=== PATIENT | male | born 1995 | race Caucasian/White ===

== ENCOUNTER 2018-04-11 15:30 | Emergency (ER) | payer OTHER ==
[2018-04-11 15:52] VITALS: O2SAT 98
--- NOTE | 2018-04-11 15:53 | ERPHSYRPT ---
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 This occurred about 1-1/2 hours to 2 hours ago. The patient stayed in the excavator the entire time until the power to the lines was shut off. At no time did he feel like he was being shocked. He exited the excavator after the power had been turned off to the lines. His work wanted him to be thoroughly examined. His past medical history is unremarkable. Timing/Duration: today, hour(s) (2) Modifying Factors: Improves With: nothing Associated Symptoms: denies symptoms - Review of Systems Constitutional: No Fever, No Chills Eyes: No Symptoms Ears, Nose, & Throat: No Symptoms Respiratory: No Symptoms, No Cough, No Dyspnea Cardiac: No Symptoms, No Chest Pain, No Edema, No Syncope Abdominal/Gastrointestinal: No Symptoms, No Abdominal Pain, No Nausea, No Vomiting, No Diarrhea Genitourinary Symptoms: No Symptoms, No Dysuria Musculoskeletal: No Symptoms, No Back Pain, No Neck Pain Skin: No Rash Neurological: No Dizziness, No Focal Weakness, No Sensory Changes Psychological: No Symptoms Endocrine: No Symptoms Hematologic/Lymphatic: No Symptoms Immunological/Allergic: No Symptoms All Other Systems: Reviewed and Negative - Nursing Vital Signs Nursing Vital Signs: Initial Vital Signs Temperature 97.8 F 04/11/18 15:39 Pulse Rate 72 04/11/18 15:39 Respiratory Rate 16 04/11/18 15:39 Blood Pressure 169/94 04/11/18 15:39 O2 Sat by Pulse Oximetry 98 04/11/18 15:39 Pain Scale Pain Intensity 10 - Physical Exam General Appearance: no apparent distress, alert Eye Exam: PERRL/EOMI, eyes nml inspection Ears, Nose, Throat Exam: normal ENT inspection, TMs normal, pharynx normal, moist mucous membranes Neck Exam: normal inspection, non-tender, supple, full range of motion Respiratory Exam: normal breath sounds, lungs clear, No respiratory distress Cardiovascular Exam: regular rate/rhythm, normal heart sounds, normal peripheral pulses Gastrointestinal/Abdomen Exam: soft, normal bowel sounds, No tenderness, No mass Back Exam: normal inspection, normal range of motion, No CVA tenderness, No vertebral tenderness Extremity Exam: normal inspection, normal range of motion, pelvis stable Neurologic Exam: alert, oriented x 3, cooperative, normal mood/affect, nml cerebellar function, nml station & gait, sensation nml, No motor deficits Skin Exam: normal color, warm, dry, No rash Lymphatic Exam: No adenopathy SpO2 Interpretation: normal - Course EKG Interpreted by Me: RATE, Sinus Rhythm, NORMAL AXIS, NORMAL INTERVALS, NORMAL QRS, NORMAL ST-T - Radiology Exams Chest X-ray Interpretation: Reviewed by me, Teleradiologist Report (per Dr Borja), Negative Ordered Tests: Active Orders 24 hr Category Date Time Status District Agent STAT Care 04/11/18 16:00 Active EKG-ER Only STAT Care 04/11/18 15:59 Active CHEST 2 VIEWS (PA AND LAT) Stat Exams 04/11/18 16:00 Completed CBC W DIFF Stat Lab 04/11/18 16:15 Completed CK-Creatinine Phosphokinase Stat Lab 04/11/18 16:15 Completed CMP Stat Lab 04/11/18 16:15 Completed ETHYL ALCOHOL Stat Lab 04/11/18 16:15 Completed TROPONIN Q3H Lab 04/11/18 16:15 Completed TROPONIN Q3H Lab 04/11/18 19:00 Ordered TROPONIN Q3H Lab 04/11/18 22:00 Ordered TROPONIN Q3H Lab 04/12/18 01:00 Ordered TROPONIN Q3H Lab 04/12/18 04:00 Ordered UA W/RFX UR CULTURE Stat Lab 04/11/18 15:59 Uncollected Urine Triage Profile Stat Lab 04/11/18 15:59 Uncollected Lab/Rad Data: Laboratory Result Diagrams 04/11/18 16:15 04/11/18 16:15 Laboratory Results 04/11/18 04/11/18 04/11/18 Range/Units 17:09 17:09 16:15 WBC (4.0-10.5) K/mm3 RBC (4.1-5.6) M/mm3 Hgb (12.5-18.0) gm/dl Hct (42-50) % MCV (78-100) fl MCH (26-32) pg MCHC (32-36) g/dl RDW (11.5-14.0) % Plt Count (150-450) K/mm3 MPV (6-9.5) fl Gran % (36.0-66.0) % Eos # (Auto) (0-0.5) Absolute Lymphs (auto) (1.0-4.6) Absolute Monos (auto) (0.0-1.3) Lymphocytes % (24.0-44.0) % Monocytes % (0.0-12.0) % Eosinophils % (0.00-5.0) % Basophils % (0.0-0.4) % Absolute Granulocytes (1.4-6.9) Basophils # (0-0.4) Sodium (137-145) mmol/L Potassium (3.5-5.1) mmol/L Chloride (98-107) mmol/L Carbon Dioxide (22-30) mmol/L Anion Gap (5-15) MEQ/L BUN (9-20) mg/dL Creatinine (0.66-1.25) mg/dL Estimated GFR ML/MIN Glucose (74-106) mg/dL Calcium (8.4-10.2) mg/dL Total Bilirubin (0.2-1.3) mg/dL AST (17-59) U/L ALT (0-50) U/L Alkaline Phosphatase (38-126) U/L Creatine Kinase (55-170) U/L Troponin I < 0.012 (0.000-0.034) ng/mL Serum Total Protein (6.3-8.2) g/dL Albumin (3.5-5.0) g/dL Urine Color STRAW (YELLOW) Urine Appearance CLEAR (CLEAR) Urine pH 7.0 (5-6) Ur Specific [place] 1.009 (1.005-1.025) Urine Protein NEGATIVE (Negative) Urine Ketones NEGATIVE (NEGATIVE) Urine Blood NEGATIVE (0-5) Rex/ul Urine Nitrite NEGATIVE (NEGATIVE) Urine Bilirubin NEGATIVE (NEGATIVE) Urine Urobilinogen NEGATIVE (0-1) mg/dL Ur Leukocyte Esterase NEGATIVE (NEGATIVE) Urine WBC (Auto) NONE (0-5) /HPF Urine RBC (Auto) NONE (0-2) /HPF U Hyaline Cast (Auto) 0-2 (0-2) /LPF U Epithel Cells (Auto) NONE (FEW) /HPF Urine Bacteria (Auto) NONE (NEGATIVE) /HPF Urine Mucus (Auto) SLIGHT (NEGATIVE) /HPF Urine Culture Reflexed NO (NO) Urine Glucose NEGATIVE (NEGATIVE) mg/dL Urine Opiates Level NEGATIVE (NEGATIVE) Ur Methadone NEGATIVE (NEGATIVE) Urine Barbiturates NEGATIVE (NEGATIVE) Ur Phencyclidine (PCP) NEGATIVE (NEGATIVE) Urine Amphetamine NEGATIVE (NEGATIVE) U Benzodiazepine Level NEGATIVE (NEGATIVE) Urine Cocaine NEGATIVE (NEGATIVE) Urine Marijuana (THC) NEGATIVE (NEGATIVE) Ethyl Alcohol (0-10) mg/dL 04/11/18 04/11/18 Range/Units 16:15 16:15 WBC 8.5 (4.0-10.5) K/mm3 RBC 5.37 (4.1-5.6) M/mm3 Hgb 16.1 (12.5-18.0) gm/dl Hct 46.5 (42-50) % MCV 86.6 (78-100) fl MCH 30.0 (26-32) pg MCHC 34.6 (32-36) g/dl RDW 12.2 (11.5-14.0) % Plt Count 276 (150-450) K/mm3 MPV 9.5 (6-9.5) fl Gran % 56.1 (36.0-66.0) % Eos # (Auto) 0.06 (0-0.5) Absolute Lymphs (auto) 2.99 (1.0-4.6) Absolute Monos (auto) 0.65 (0.0-1.3) Lymphocytes % 35.2 (24.0-44.0) % Monocytes % 7.6 (0.0-12.0) % Eosinophils % 0.7 (0.00-5.0) % Basophils % 0.4 (0.0-0.4) % Absolute Granulocytes 4.77 (1.4-6.9) Basophils # 0.03 (0-0.4) Sodium 143 (137-145) mmol/L Potassium 4.3 (3.5-5.1) mmol/L Chloride 101 (98-107) mmol/L Carbon Dioxide 31 H (22-30) mmol/L Anion Gap 15.0 (5-15) MEQ/L BUN 14 (9-20) mg/dL Creatinine 1.23 (0.66-1.25) mg/dL Estimated GFR > 60.0 ML/MIN Glucose 106 (74-106) mg/dL Calcium 9.9 (8.4-10.2) mg/dL Total Bilirubin 0.60 (0.2-1.3) mg/dL AST 45 (17-59) U/L ALT 70 H (0-50) U/L Alkaline Phosphatase 70 (38-126) U/L Creatine Kinase 112 (55-170) U/L Troponin I (0.000-0.034) ng/mL Serum Total Protein 8.2 (6.3-8.2) g/dL Albumin 5.1 H (3.5-5.0) g/dL Urine Color (YELLOW) Urine Appearance (CLEAR) Urine pH (5-6) Ur Specific [place] (1.005-1.025) Urine Protein (Negative) Urine Ketones (NEGATIVE) Urine Blood (0-5) Rex/ul Urine Nitrite (NEGATIVE) Urine Bilirubin (NEGATIVE) Urine Urobilinogen (0-1) mg/dL Ur Leukocyte Esterase (NEGATIVE) Urine WBC (Auto) (0-5) /HPF Urine RBC (Auto) (0-2) /HPF U Hyaline Cast (Auto) (0-2) /LPF U Epithel Cells (Auto) (FEW) /HPF Urine Bacteria (Auto) (NEGATIVE) /HPF Urine Mucus (Auto) (NEGATIVE) /HPF Urine Culture Reflexed (NO) Urine Glucose (NEGATIVE) mg/dL Urine Opiates Level (NEGATIVE) Ur Methadone (NEGATIVE) Urine Barbiturates (NEGATIVE) Ur Phencyclidine (PCP) (NEGATIVE) Urine Amphetamine (NEGATIVE) U Benzodiazepine Level (NEGATIVE) Urine Cocaine (NEGATIVE) Urine Marijuana (THC) (NEGATIVE) Ethyl Alcohol < 10 (0-10) mg/dL - Progress Progress: unchanged Counseled pt/family regarding: lab results, diagnosis, rad results - Departure Time of Disposition: 17:51 Departure Disposition: Home Clinical Impression: Normal exam Condition: Stable Critical Care Time: No Additional Instructions: Your physical exam, chest x-ray, EKG, and all laboratory results were negative. Your urine and urine drug screen were negative as well. Follow-up as needed.
[2018-04-11 16:20] LABS: BASOPHIL % 0.4 % (0.0-0.4); Basophil (Absolute #) 0.03 (0-0.4); Eosinophil % 0.7 % (0.00-5.0); Eosinophil (Absolute #) 0.06 (0-0.5); Granulocytes % 56.1 % (36.0-66.0); Hematocrit 46.5 % (42-50); Hemoglobin 16.1 gm/dl (12.5-18.0); Lymphocyte (Absolute #) 2.99 (1.0-4.6); Lymphocytes % 35.2 % (24.0-44.0); Mean Cell Volume 86.6 fl (78-100); Mean Corpuscular Hgb Concent. 34.6 g/dl (32-36); Mean Platelet Volume 9.5 fl (6-9.5); Monocyte (Absolute #) 0.65 (0.0-1.3); Monocytes % 7.6 % (0.0-12.0); Platelet Count 276 K/mm3 (150-450); Red Blood Count 5.37 M/mm3 (4.1-5.6); Red Cell Distribution Width 12.2 % (11.5-14.0); White Blood Count 8.5 K/mm3 (4.0-10.5)
--- NOTE | 2018-04-11 16:34 | XRAY ---
Indication: Electric shock. Comparison: None PA/lateral chest demonstrates normal heart, lungs, and bony thorax.
[2018-04-11 16:35] LABS: ALBUMIN 5.1 g/dL (3.5-5.0); ALKALINE PHOSPHATASE 70 U/L (38-126); BLOOD UREA NITROGEN 14 mg/dL (9-20); CHLORIDE 101 mmol/L (98-107); CK-Creatinine Phosphokinase 112 U/L (55-170); Calcium 9.9 mg/dL (8.4-10.2); Carbon Dioxide 31 mmol/L (22-30); Creatinine 1 1.23 mg/dL (0.66-1.25); ETHYL ALCOHOL < 10 mg/dL (0-10); Glucose 106 mg/dL (74-106); Potassium 4.3 mmol/L (3.5-5.1); SGOT/AST 45 U/L (17-59); SGPT/ALT 70 U/L (0-50); SODIUM 143 mmol/L (137-145); Total Protein 8.2 g/dL (6.3-8.2)
[2018-04-11 17:17] VITALS: BP 113/62; PULSE 76
[2018-04-11 17:42] LABS: Amphetamine,Urine NEGATIVE (NEGATIVE); Appearance CLEAR (CLEAR); Barbiturate,Urine NEGATIVE (NEGATIVE); Benzodiazepine,Urine NEGATIVE (NEGATIVE); Bilirubin NEGATIVE (NEGATIVE); Blood NEGATIVE Ery/ul (0-5); Cocaine,Urine NEGATIVE (NEGATIVE); Glucose NEGATIVE (NEGATIVE); Hyaline Casts 0-2 /LPF (0-2); Ketones NEGATIVE (NEGATIVE); Leukocyte Esterase NEGATIVE (NEGATIVE); Methadone,Urine NEGATIVE (NEGATIVE); Mucus SLIGHT /HPF (NEGATIVE); Nitrite NEGATIVE (NEGATIVE); Opiate,Urine NEGATIVE (NEGATIVE); PCP,Urine NEGATIVE (NEGATIVE); Protein,Urine Dip NEGATIVE (Negative); Specific Gravity 1.009 (1.005-1.025); THC,Urine NEGATIVE (NEGATIVE); Urobilinogen NEGATIVE mg/dL (0-1)
== END 2018-04-11 18:02 | disposition home or self-care (01) ==
LOC: ED 15:30
DX: Z04.2 Encounter for examination and observation following work accident (principal)
CPT/HCPCS: 36415; 71046; 80053; 80307; 81001; 82550; 84484; 85025; 93005; 93041; 99284; G0480